=== PATIENT | female | born 1955 | race Caucasian/White ===

== ENCOUNTER 2016-08-15 08:41 | Outpatient (CLI) | payer BC | END 2016-08-15 20:53 | disposition home or self-care (01) | LOC: SUS 08:41 | PROVIDERS: ATTEND Urology | DX: N28.1 Cyst of kidney, acquired (principal); Z87.442 Personal history of urinary calculi | CPT/HCPCS: 76770 ==

== ENCOUNTER 2017-01-05 14:01 | Outpatient (CLI) | payer BC | END 2017-01-05 20:00 | disposition home or self-care (01) | LOC: SUS 14:01 | PROVIDERS: ATTEND Otolaryngology | DX: E04.2 Nontoxic multinodular goiter (principal) | CPT/HCPCS: 76536-TC ==

== ENCOUNTER 2017-11-09 09:42 | Outpatient (CLI) | payer BC ==
[2017-11-09 10:53] LABS: CREATININE 0.84 mg/dL (0.55-1.30)
== END 2017-11-09 20:20 | disposition home or self-care (01) ==
LOC: SLB 09:42
PROVIDERS: ATTEND Otolaryngology
DX: J32.9 Chronic sinusitis, unspecified (principal)
CPT/HCPCS: 36415; 82565-TC; 84520-TC

== ENCOUNTER 2018-02-04 20:28 | Emergency (ER) | payer BC ==
[~2018-02-04] VITALS: Ht 160 cm; Wt 77.1 kg
[2018-02-04 20:37] VITALS: BP_SYST 130
[2018-02-04] MEDS ORDERED: KETOROLAC TROMETHAMINE 30 MG VIAL IM ONE (23:00)
[2018-02-05 00:43] VITALS: BP_SYST 125
== END 2018-02-05 00:43 | disposition home or self-care (01) ==
LOC: SED 20:28
DX: S40.812A Abrasion of left upper arm, initial encounter (principal); S30.810A Abrasion of lower back and pelvis, initial encounter; M54.2 Cervicalgia; K21.9 Gastro-esophageal reflux disease without esophagitis; Z88.6 Allergy status to analgesic agent; Z88.1 Allergy status to other antibiotic agents; Z88.5 Allergy status to narcotic agent; Z88.0 Allergy status to penicillin; W17.89XA Other fall from one level to another, initial encounter; Y93.89 Activity, other specified; Y92.89 Other specified places as the place of occurrence of the external cause; Y99.8 Other external cause status
CPT/HCPCS: 70450; 72125; 72128; 72131; 96372; 99284; J1885